=== PATIENT | male | born 1980 | race Caucasian/White ===

== ENCOUNTER 2019-11-13 17:58 | Inpatient (IN) ==
--- OUTSIDE RECORDS SUMMARY | 2019-11-13 17:59 | External Medical Summary | Continuity of Care Document ---
:1980 Author Name Jose Looney, Provider Address Unavailable Unavailable , Care Team Providers Name Role Phone Elodia Del Real [email or web address] Mercedes Ramirez Unavailable Unavailable Assessments Assessed Problems:Dog bite of face, subsequent encounter Problems Dog bite of face, subsequent encounter (V58.89) (S01.85XD) Allergies and Adverse Reactions No Known Drug Allergies (Allergy) Medications No Reported Medications Refills: 0 Procedures Procedures not documented Immunizations Immunizations not documented Family History Unknown Family Member No pertinent family history (V49.89) (Z78.9) Status: Active Comments: Family History Social History - Smoking Status Never smoked tobacco Interventions Discussion/SummarySamuel is reassured that everything looks great. Sutures were removed today. We discussed that it can take up to a year for scar to fully mature and that it may actually look course for looks better. Iwould not entertain any kind of scar revision until 9 months to year following this injury, and I donot think this will be necessary either. He was instructed in scar management and given a separatelyprinted handout discussing use of topical antibiotic ointment, followed by silicone scar gel and sunscreen. Questions were answered. No follow-up visit is necessary unless he has concerns. Plan of Treatment Planned Observations Planned Goals not documented Results No Known Results Results not documented Encounters Appointment; Elodia Del Real M.D. 04-Feb-2016 14:20 Encounter Diagnosis: Problem not documented
[2019-11-13] MEDS ORDERED: SODIUM CHLORIDE 0.9% 1000ML 1,000 ML IV ONE (18:06)
[2019-11-13] MEDS ORDERED: ACETAMINOPHEN 1,000 MG/100 ML VIAL IV STA (18:06)
[2019-11-13] MEDS ORDERED: ONDANSETRON INJ 2 MG/ML 2 ML VIAL IV STA (18:06)
--- NOTE | 2019-11-13 18:23 | XRay Report ---
SINGLE VIEW CHEST CLINICAL HISTORY: Sepsis. FINDINGS: An AP, portable, upright chest radiograph is obtained. No prior studies are available for c omparison at the time of dictation. The cardiomediastinal silhouette is unremarkable. A calcified gr anuloma seen in the left upper lobe. The lungs and pleural spaces are otherwise clear. No pneumothora x is seen. The bony thorax is grossly intact. There is moderate thoracic scoliosis. IMPRESSION: No active disease in the chest. ACT 112: Negative or not required by law. Electronically signed by: Curly Villalobos M.D. 11/13/2019 6:22 PM
--- NOTE | 2019-11-13 18:24 | XRay Report ---
KUB CLINICAL HISTORY: Generalized abdominal pain. FINDINGS: 2 AP, portable, supine abdominal radiographs are obtained. No prior studies are available f or comparison at the time of dictation. There is a nonobstructed abdominal bowel gas pattern. No evid ence of intraperitoneal free air is seen on these supine images. There are no abnormal abdominal calc ifications. The bony structures appear intact. Thoracolumbar scoliosis is noted. IMPRESSION: Nonobstructed abdominal bowel gas pattern. Electronically signed by: Curly Villalobos M.D. 11/13/2019 6:23 PM
[2019-11-13 18:35] LABS: Basophils # (auto) 0.04 K/uL (0-0.2); Basophils % (auto) 0.2 %; Eosinophils # (auto) 0.06 K/uL (0-0.5); Eosinophils % (auto) 0.3 %; Hematocrit (blood only) 44.8 % (42-52); Immature Granulocytes # (auto) 0.21 K/uL (0.00-0.02); Immature Granulocytes % (auto) 1.1 %; Lymphocytes # (auto) 1.68 K/uL (1.2-3.4); Lymphocytes % (auto) 9.2 %; Mean Corpuscular Hemoglobin 29.8 pg (25-34); Mean Corpuscular Hgb Conc 33.5 g/dL (32-36); Mean Corpuscular Volume 89.1 fL (80-100); Mean Platelet Volume 9.6 fL (7.4-10.4); Monocytes # (auto) 1.25 K/uL (0.11-0.59); Monocytes % (auto) 6.8 %; Neutrophils # (auto) 15.09 K/uL (1.4-6.5); Neutrophils % (auto) 82.4 %; Platelet Count 558 K/uL (130-400); RDW Coefficient of Variation 13.1 % (11.5-14.5); RDW Standard Deviation 42.6 fL (36.4-46.3); Red Blood Count 5.03 M/uL (4.7-6.1); White Blood Count 18.33 K/uL (4.8-10.8)
[2019-11-13] MEDS ORDERED: IOVERSOL 100ml IV ONE (18:36)
[2019-11-13 18:42] LABS: iSTAT Creatinine 1.1 mg/dl (0.6-1.3); iSTAT Ionized Calcium 1.1 mmol/l (1.12-1.32); iSTAT Potassium 5.2 mmol/L (3.3-5.0)
[2019-11-13 18:50] LABS: INR 1.2 (0.9-1.1); Partial Thromboplastin Ratio 1.1; Partial Thromboplastin Time 31.6 Seconds (21.0-31.0); Prothrombin Time 12.2 Seconds (9.0-12.0)
[2019-11-13 18:58] LABS: Albumin Globulin Ratio 0.5 (0.9-2); Albumin Level 3.4 gm/dl (3.4-5.0); BUN Creatinine Ratio 9.9 (10-20); Bilirubin,Total 0.8 mg/dl (0.2-1); Calcium 9.4 mg/dl (8.5-10.1); Creatinine Clr Calc Pharmacy 82.8 ml/min; Est GFR (African American) 79.8; Est GFR (Non-African American) 68.9; Globulin 6.2 gm/dl (2.5-4.0); Total Protein 9.6 gm/dl (6.4-8.2)
--- NOTE | 2019-11-13 18:59 | CT Scan Report ---
CT SCAN OF THE ABDOMEN AND PELVIS WITH IV CONTRAST CLINICAL HISTORY: Left lower quadrant abdominal pain. Fever. COMPARISON STUDY: Abdominal radiographs dated 11/13/2019. TECHNIQUE: Following the IV administration of 95 cc of Optiray 320, CT scan of the abdomen and pelvi s is performed from the lung bases to the proximal femora. Images are reviewed in the axial, sagittal , and coronal planes. IV contrast was administered without complication. A dose lowering technique wa s utilized adhering to the principles of ALARA. CT DOSE: 791.34 mGy.cm FINDINGS: Lung bases: The heart is normal in size and without pericardial effusion. The lung bases are clear no ting minimal dependent atelectasis. There is a small hiatal hernia. Liver: The contrast-enhanced liver is normal in size, contour, and attenuation. There is no intrahepa tic biliary ductal dilatation. The hepatic veins and portal veins are patent. Gallbladder: Unremarkable. Spleen: Normal in size and attenuation. Pancreas: Unremarkable. Adrenal glands: Unremarkable. Kidneys: The contrast enhanced kidneys are normal in size and without hydronephrosis. The kidneys enh ance symmetrically. Abdominal vasculature: The abdominal aorta is normal in course and caliber. Bowel: There is mild colonic diverticulosis, greatest involving the left colon. There is phlegmonous change/developing abscess in the left lower quadrant seen on image #287. This measures approximately 5 x 5 x 3.5 cm with surrounding inflammation. There is also mild wall thickening of the history desce nding/proximal sigmoid colon and this is likely related to diverticulitis. No bowel obstruction is se en. The appendix is well-visualized and normal. Peritoneum: There is no intraperitoneal free air or abdominal ascites. There is a small fat-containin g umbilical hernia. Lymphadenopathy: None. Pelvic viscera: The bladder, prostate, and seminal vesicles are normal as visualized. Skeletal structures: There is no upper lumbar scoliosis. Mild spondylotic change is seen in the lower lumbar spine. No lytic or blastic lesions are seen. IMPRESSION: 1. There is phlegmonous change/developing abscess in the left lower quadrant as above with surroundin g inflammation. The likely etiology is diverticulitis. 2. There is mild colonic diverticulosis, greatest involving the left colon. Mild wall thickening is s een involving the distal descending/proximal sigmoid. This likely represents diverticulitis and may b e subacute. 3. No intraperitoneal free air is identified. 4. Additional findings as above. ACT 112: Negative or not required by law. Electronically signed by: Curly Villalobos M.D. 11/13/2019 6:57 PM
[2019-11-13] MEDS ORDERED: cefTRIAXone SODIUM 1,000 MG/50 ML BAG IV STA (19:04)
[2019-11-13] MEDS ORDERED: metroNIDAZOLE 500 MG/100 ML BAG IV STA (19:04)
[2019-11-13 19:26] LABS: Potassium 3.6 mmol/L (3.5-5.1)
[2019-11-13 19:31] LABS: Magnesium 1.9 mg/dl (1.8-2.4)
[2019-11-13] MEDS ORDERED: SODIUM CHLORIDE 0.9% 500 ML IV SCH (20:15)
--- NOTE | 2019-11-13 20:24 | Emergency Department Note ---
History of Present Illness General Chief Complaint: Abdominal Pain Stated Complaint: REF BY JEANNINE GALINDO PAIN Time Seen by Provider: 11/13/19 18:05 History of Present Illness Provider Complaint: abdominal pain Onset (ago): 1 week(s) Pain Consistency: constant Location: LLQ Radiation: RLQ Severity: moderate Maximum Pain Intensity: 5 Current Pain Intensity: 5 Quality: + stabbing and + aching Relieved By: + nothing Exacerbated By: + nothing Context: no foreign travel, no possible food poisoning, no recent antibiotic use, no recent surgery/procedure and no history of similar episodes Associated Symptoms: + nausea, + vomiting and + fever; no diarrhea, no constipation, no dysuria, no hematemesis, no hematochezia, no melena, no hematuria, no headache, no chest pain, no breathing difficulty and no numbness Home Medications Home Medications Medication Instructions Recorded Confirmed Type omeprazole 40 mg PO DAILY 11/13/19 11/13/19 History polyethylene glycol 3350 [Miralax] 17 g PO DAILY PRN 11/13/19 11/13/19 History Allergies Allergy/AdvReac Type Severity Reaction Status Date / Time No Known Allergies Allergy Unverified 11/13/19 20:01 Past Med/Surg History Medical History (Updated 11/13/19 @ 20:24 by Harshal Shelton) No pertinent family history No pertinent past medical history Surgical History (Updated 11/13/19 @ 20:20 by Harshal Shelton) No pertinent past surgical history Social History Smoking Status: Never smoker Feels Safe at Home: Yes Review of Systems A total of 10 systems reviewed and were otherwise negative Physical Exam Vital Signs: Vital Signs - 24 hr 11/13/19 18:02 11/13/19 18:05 11/13/19 19:20 Temperature 38.6 C H Temperature Source Oral Pulse Rate 127 H Pulse Rate [Apical ] 105 H Pulse Rhythm Regular Pulse Rhythm [Apic al] Regular Pulse Strength Normal Respiratory Rate 20 18 Respiratory Effort / Characteristics Non-Labored Sponta neous Respiratory Depth Normal Normal Respiratory Patter n Regular Blood Pressure 153/96 H Blood Pressure [Ri ght Arm] 134/83 Blood Pressure Tea n 115 Blood Pressure Tea n [Right Arm] 100 Blood Pressure Pos ition Sitting Pulse Oximetry 97 99 Oxygen Delivery Me thod Room Air Room Air Room Air Sepsis Recent Feve r Within 48 Hours No Sepsis New/Unexpla ined Change in Men mike Status N/A Sepsis Action Take n by Nursing No Action Required Physical Exam: Physical Exam GENERAL: He is oriented to person, place, and time. He appears well-developed and well-nourished. He does not appear distressed. HENT: Exam performed. - Head: Normocephalic and atraumatic. - Right Ear: External ear normal. No mastoid tenderness. - Left Ear: External ear normal. No mastoid tenderness. - Mouth/Throat: The oropharynx is clear and moist. No trismus in the jaw. No dental abscesses or uvula swelling. No oropharyngeal exudate or tonsillar abscesses. EYES: Conjunctivae and EOM are normal. Pupils are equal, round, and reactive to light. Right eye exhibits no discharge. Left eye exhibits no discharge. No scleral icterus. NECK: Normal range of motion. Neck supple. No JVD present. No spinous process tenderness present. No carotid bruit present. No rigidity. No tracheal deviation and normal range of motion present. No Brudzinski's sign and no Kernig's sign noted. CV: Tachycardic rate, regular rhythm, normal heart sounds and intact distal pulses. There is no peripheral edema. Palpable radial pulses bue. PULM/CHEST: Effort normal and breath sounds normal. No respiratory distress. No stridor. He has no wheezes. He has no rales. - Chest Wall: He exhibits no tenderness. ABD: The abdomen distended and tympanic. There is tenderness to palpation of the left lower quadrant and the right lower quadrant. There is no rebound, no guarding, no Garcia's sign and no tenderness at McBurney's point. Rovsig negative. MUSC/SKEL: Normal range of motion. There is no peripheral edema, tenderness or deformity. LYMPH: No cervical adenopathy. NEURO: He is alert and oriented to person, place, and time. He has normal strength. No cranial nerve deficit or sensory deficit. Coordination and gait normal. GCS eye subscore is 4. GCS verbal subscore is 5. GCS motor subscore is 6. Cerebellar tests wnl. SKIN: Skin is warm and dry. He is not diaphoretic. PSYCH: He has a normal mood and affect. Behavior is normal. Judgment and thought content normal. Course Course 1804: The patient was evaluated in room [facility]. A complete history and physical exam was performed. Patient was immediately seen on arrival in the room. Patient was found to be tachycardic and febrile. Sepsis order protocols were in itiated. Fluid bolus was initiated. There was concerned that the patient might have a perforation given the tenderness in his abdomen, distention, and tympanic nature of his abdomen. Bedside x-rays reviewed by me which showed no free air under the abdomen. Patient will have i-STAT done and if within normal limits we taken a CAT scan immediately. 2005: Labs show leukocytosis of 18. Lactic acid within normal limits. CT of the abdomen shows diverticulitis but no perforation or abscess. Patient will be treated with Rocephin and Flagyl. [facility] [place] [facility]. Joni Serrano Administered Medications Discontinued Medications Acetaminophen (Ofirmev) 1,000 mg in 100 mls @ 400 mls/hr IV NOW STA Stop: 11/13/19 18:20 Last Infusion: 11/13/19 18:58 Dose: 0 mls/hr Documented by: [id number] Admin: 11/13/19 18:25 Dose: 400 mls/hr Documented by: [id number] Sodium Chloride (Nss 1000ml) 1,000 mls @ 999 mls/hr IV .Q1H1M ONE Stop: 11/13/19 19:06 Last Infusion: 11/13/19 19:54 Dose: 0 mls/hr Documented by: [id number] Admin: 11/13/19 18:23 Dose: 999 mls/hr Documented by: [id number] Ceftriaxone Sodium (Rocephin) 1,000 mg in 50 mls @ 100 mls/hr IV NOW STA Stop: 11/13/19 19:33 Last Infusion: 11/13/19 19:47 Dose: 0 mls/hr Documented by: [id number] Admin: 11/13/19 19:17 Dose: 100 mls/hr Documented by: [id number] Metronidazole (Flagyl) 500 mg in 100 mls @ 100 mls/hr IV NOW STA Stop: 11/13/19 20:03 Last Admin: 11/13/19 19:53 Dose: 100 mls/hr Documented by: [id number] Ioversol (Ioversol 100ml) 95 ml IV ONCE ONE Stop: 11/13/19 18:37 Last Admin: 11/13/19 18:37 Dose: 95 ml Documented by: [id number] Ondansetron HCl (Ondansetron Inj 2 Mg/Ml 2 Ml Vial) 4 mg IV NOW STA Stop: 11/13/19 18:07 Last Admin: 11/13/19 18:25 Dose: 4 mg Documented by: [id number] Medical Decision Making Laboratory Data Result diagrams: 11/13/19 18:20 11/13/19 19:06 Lab Results 11/13/19 11/13/19 11/13/19 Range/Units 18:20 18:20 18:20 WBC 18.33 H (4.8-10.8) K/uL RBC 5.03 (4.7-6.1) M/uL Hgb 15.0 (14.0-18.0) g/dL POC Hgb (14.0-18.0) g/dl Hct 44.8 (42-52) % POC Hct (42-52) % MCV 89.1 (80-100) fL MCH 29.8 (25-34) pg MCHC 33.5 (32-36) g/dL RDW Std Deviation 42.6 (36.4-46.3) fL RDW Coeff of Masha 13.1 (11.5-14.5) % Plt Count 558 H (130-400) K/uL MPV 9.6 (7.4-10.4) fL Immature Gran % (Auto) 1.1 % Neut % (Auto) 82.4 % Lymph % (Auto) 9.2 % Mills % (Auto) 6.8 % Eos % (Auto) 0.3 % Baso % (Auto) 0.2 % Neut # (Auto) 15.09 H (1.4-6.5) K/uL Lymph # (Auto) 1.68 (1.2-3.4) K/uL Mills # (Auto) 1.25 H (0.11-0.59) K/uL Eos # (Auto) 0.06 (0-0.5) K/uL Baso # (Auto) 0.04 (0-0.2) K/uL Immature Gran # (Auto) 0.21 H (0.00-0.02) K/uL PT 12.2 H (9.0-12.0) Seconds INR 1.2 H (0.9-1.1) APTT 31.6 H (21.0-31.0) Seconds PTT Ratio 1.1 POC Sodium (135-144) mmol/L Sodium 133 L (136-145) mmol/L POC Potassium (3.3-5.0) mmol/L Potassium (3.5-5.1) mmol/L POC Chloride (101-112) mmol/L Chloride 99 (98-107) mmol/L Carbon Dioxide 25 (21-32) mmol/L POC Total CO2 (24-31) mmol/L Anion Gap 9.0 (3-11) POC Anion Gap (16-25) mmol/L POC BUN (7-18) mg/dl BUN 13 (7-18) mg/dl Creatinine 1.29 (0.6-1.4) mg/dl POC Creatinine (0.6-1.3) mg/dl Est Cr Clr Drug Dosing 82.8 ml/min Est GFR ( Amer) 79.8 Est GFR (Non-Af Amer) 68.9 BUN/Creatinine Ratio 9.9 L (10-20) Glucose 97 (70-99) mg/dl POC Glucose (other) (70-99) mg/dl Lactate (0.4-2.0) mmol/L Calcium 9.4 (8.5-10.1) mg/dl POC Ioniz Calcium Stuart (1.12-1.32) mmol/l Magnesium (1.8-2.4) mg/dl Total Bilirubin 0.8 (0.2-1) mg/dl AST (15-37) U/L ALT 64 (12-78) U/L Alkaline Phosphatase 149 H (45-117) U/L Total Protein 9.6 H (6.4-8.2) gm/dl Albumin 3.4 (3.4-5.0) gm/dl Globulin 6.2 H (2.5-4.0) gm/dl Albumin/Globulin Ratio 0.5 L (0.9-2) 11/13/19 11/13/19 11/13/19 Range/Units 18:20 18:28 19:06 WBC (4.8-10.8) K/uL RBC (4.7-6.1) M/uL Hgb (14.0-18.0) g/dL POC Hgb 16.0 (14.0-18.0) g/dl Hct (42-52) % POC Hct 47 (42-52) % MCV (80-100) fL MCH (25-34) pg MCHC (32-36) g/dL RDW Std Deviation (36.4-46.3) fL RDW Coeff of Masha (11.5-14.5) % Plt Count (130-400) K/uL MPV (7.4-10.4) fL Immature Gran % (Auto) % Neut % (Auto) % Lymph % (Auto) % Mills % (Auto) % Eos % (Auto) % Baso % (Auto) % Neut # (Auto) (1.4-6.5) K/uL Lymph # (Auto) (1.2-3.4) K/uL Mills # (Auto) (0.11-0.59) K/uL Eos # (Auto) (0-0.5) K/uL Baso # (Auto) (0-0.2) K/uL Immature Gran # (Auto) (0.00-0.02) K/uL PT (9.0-12.0) Seconds INR (0.9-1.1) APTT (21.0-31.0) Seconds PTT Ratio POC Sodium 135 (135-144) mmol/L Sodium (136-145) mmol/L POC Potassium 5.2 H (3.3-5.0) mmol/L Potassium 3.6 (3.5-5.1) mmol/L POC Chloride 99 L (101-112) mmol/L Chloride (98-107) mmol/L Carbon Dioxide (21-32) mmol/L POC Total CO2 24 (24-31) mmol/L Anion Gap (3-11) POC Anion Gap 17.0 (16-25) mmol/L POC BUN 17 (7-18) mg/dl BUN (7-18) mg/dl Creatinine (0.6-1.4) mg/dl POC Creatinine 1.1 (0.6-1.3) mg/dl Est Cr Clr Drug Dosing ml/min Est GFR ( Amer) Est GFR (Non-Af Amer) BUN/Creatinine Ratio (10-20) Glucose (70-99) mg/dl POC Glucose (other) 102 H (70-99) mg/dl Lactate 1.6 (0.4-2.0) mmol/L Calcium (8.5-10.1) mg/dl POC Ioniz Calcium Stuart 1.10 L (1.12-1.32) mmol/l Magnesium 1.9 (1.8-2.4) mg/dl Total Bilirubin (0.2-1) mg/dl AST 19 (15-37) U/L ALT (12-78) U/L Alkaline Phosphatase (45-117) U/L Total Protein (6.4-8.2) gm/dl Albumin (3.4-5.0) gm/dl Globulin (2.5-4.0) gm/dl Albumin/Globulin Ratio (0.9-2) Imaging Data Radiologist's Impression: KUB CLINICAL HISTORY: Generalized abdominal pain. FINDINGS: 2 AP, portable, supine abdominal radiographs are obtained. No prior studies are available for comparison at the time of dictation. There is a nonobstructed abdominal bowel gas pattern. No evidence of intraperitoneal free air is seen on these supine images. There are no abnormal abdominal calcifications. The bony structures appear intact. Thoracolumbar scoliosis is noted. IMPRESSION: Nonobstructed abdominal bowel gas pattern. Electronically signed by: Curly Villalobos M.D. 11/13/2019 6:23 PM Dictated: 11/13/191821 Transcribed: 11/13/191821 CT SCAN OF THE ABDOMEN AND PELVIS WITH IV CONTRAST CLINICAL HISTORY: Left lower quadrant abdominal pain. Fever. COMPARISON STUDY: Abdominal radiographs dated 11/13/2019. TECHNIQUE: Following the IV administration of 95 cc of Optiray 320, CT scan of the abdomen and pelvis is performed from the lung bases to the proximal femora. Images are reviewed in the axial, sagittal, and coronal planes. IV contrast was administered without complication. A dose lowering technique was utilized adhering to the principles of ALARA. CT DOSE: 791.34 mGy.cm FINDINGS: Lung bases: The heart is normal in size and without pericardial effusion. The lung bases are clear noting minimal dependent atelectasis. There is a small hiatal hernia. Liver: The contrast-enhanced liver is normal in size, contour, and attenuation. There is no intrahepatic biliary ductal dilatation. The hepatic veins and portal veins are patent. Gallbladder: Unremarkable. Spleen: Normal in size and attenuation. Pancreas: Unremarkable. Adrenal glands: Unremarkable. Kidneys: The contrast enhanced kidneys are normal in size and without hydronephrosis. The kidneys enhance symmetrically. Abdominal vasculature: The abdominal aorta is normal in course and caliber. Bowel: There is mild colonic diverticulosis, greatest involving the left colon. There is phlegmonous change/developing abscess in the left lower quadrant seen on image #287. This measures approximately 5 x 5 x 3.5 cm with surrounding inflammation. There is also mild wall thickening of the history descending/proximal sigmoid colon and this is likely related to diverticulitis. No bowel obstruction is seen. The appendix is well-visualized and normal. Peritoneum: There is no intraperitoneal free air or abdominal ascites. There is a small fat-containing umbilical hernia. Lymphadenopathy: None. Pelvic viscera: The bladder, prostate, and seminal vesicles are normal as visualized. Skeletal structures: There is no upper lumbar scoliosis. Mild spondylotic change is seen in the lower lumbar spine. No lytic or blastic lesions are seen. IMPRESSION: 1. There is phlegmonous change/developing abscess in the left lower quadrant as above with surrounding inflammation. The likely etiology is diverticulitis. 2. There is mild colonic diverticulosis, greatest involving the left colon. Mild wall thickening is seen involving the distal descending/proximal sigmoid. This likely represents diverticulitis and may be subacute. 3. No intraperitoneal free air is identified. 4. Additional findings as above. ACT 112: Negative or not required by law. Electronically signed by: Curly Villalobos M.D. 11/13/2019 6:57 PM Dictated: 11/13/191846 Transcribed: 11/13/191846 SINGLE VIEW CHEST CLINICAL HISTORY: Sepsis. FINDINGS: An AP, portable, upright chest radiograph is obtained. No prior studies are available for comparison at the time of dictation. The cardiomediastinal silhouette is unremarkable. A calcified granuloma seen in the left upper lobe. The lungs and pleural spaces are otherwise clear. No pneumothorax is seen. The bony thorax is grossly intact. There is moderate t horacic scoliosis. IMPRESSION: No active disease in the chest. ACT 112: Negative or not required by law. Electronically signed by: Curly Villalobos M.D. 11/13/2019 6:22 PM Dictated: 11/13/191820 Transcribed: 11/13/191820 ECG Data Indication: abdominal pain Rate (beats per minute): 110 Rhythm: sinus tachycardia Findings: no ST depression and no ST elevation Additional Comments: ID QRS and QTc intervals within normal limits. [facility] Narrative 1805: The patient was evaluated in room B12. A complete history and physical ex am was performed. Patient was immediately seen on arrival in the room. Patient was found to be tachycardic and febrile. Sepsis order protocols were initiated. Fluid bolus was initiated. There was concerned that the patient might have a perforation given the tenderness in his abdomen, distention, and tympanic nature of his abdomen. Bedside x-rays reviewed by me which showed no free air under the abdomen. Patient will have i-STAT done and if within normal limits we taken a CAT scan immediately. 2004: Labs show leukocytosis of 18. Lactic acid within normal limits. CT of the abdomen shows diverticulitis but no perforation or abscess. Patient will be treated with Rocephin and Flagyl. Patient will be admitted to the [place] [facility] team Dr. Joni Serrano Impression & Plan Diverticulitis Discharge Plan Visit Data Chief Complaint: Abdominal Pain Stated Complaint: REF BY , ABD PAIN ED Provider: Harshal Shelton Discharge Problem: Diverticulitis Patient Disposition: Admitted As Inpatient Forms Stand Alone Forms: My [facility] Prescriptions Prescriptions: No Action polyethylene glycol 3350 [Miralax] 17 gram Powder In Packet 17 g PO DAILY PRN (Reason: Constipation) RF: 0 omeprazole 40 mg Capsule,Delayed Release(Dr/Ec) 40 mg PO DAILY RF: 0 Referrals Referrals: Mercedes Ramirez PA-C [Primary Care Provider] -
[2019-11-13 21:04] LABS: Appearance Urine Clear (Clear); Bacteria Urine Automated Negative (Negative); Bilirubin Urine Negative (Negative); Blood Urine 1+ (Negative); Cast Urine Automated 0 /lpf (0-5); Color Urine Yellow; Epithelial Cell Urine Auto 0-5 /lpf (0-5); Glucose Urine UA Negative (Negative); Ketones Urine 1+ (Negative); Leukocyte Esterase Urine Negative (Negative); Nitrite Urine Negative (Negative); Protein Urine Negative (Negative); RBC Urine Automated 0-4 /hpf (0-4); Specific Gravity Urine 1.044 (1.000-1.030); Urobilinogen Urine Negative (Negative)
[2019-11-13] MEDS ORDERED: NITROGLYCERIN SL 0.4 MG/TAB TAB SL PRN (21:13)
[2019-11-13] MEDS ORDERED: HYDROmorphone INJ 0.5 MG/0.5 ML SYR IV PRN (21:13)
[2019-11-13] MEDS ORDERED: PIPERACILL/TAZOBAC CONSULT ACTIVE PRN (21:13)
[2019-11-13] MEDS ORDERED: ONDANSETRON INJ 2 MG/ML 2 ML VIAL IV PRN (21:13)
[2019-11-13] MEDS ORDERED: PIPERACILLIN/TAZOBACTAM 4.5 GM in DEXTROSE 5% 100 ML IV ONE (21:30)
[2019-11-13] MEDS: SODIUM CHLORIDE 0.9% 1000ML 1,000 ML IV SCH (22:14)
--- NOTE | 2019-11-13 22:28 | History and Physical Report ---
DATE OF ADMISSION: 11/13/2019 CHIEF COMPLAINT: Abdominal pain. HISTORY OF PRESENT ILLNESS: This 39-year-old male with past medical history significant for GERD, who presents with ongoing abdominal pain since last 1 week, mostly in the left lower quadrant and today he felt chills and fevers and nausea, no vomiting, somewhat constipated. Denies any blood in the stools. Normal bladder movements. Denies any chest pain or shortness of breath. Has some headache. No blurred vision, no earache, no runny nose, no sore throat. Appetite is okay. No dysphagia, no cough. Currently resting comfortably. When he came in, he was having temp spike and tachycardia, white count is 18. Lactate is 1.6. CT abdomen and pelvis is showing acute diverticulitis in the descending, proximal sigmoid region and with developing abscess. ALLERGIES: No known drug allergies. PAST MEDICAL HISTORY: As mentioned above. PAST SURGICAL HISTORY: Colonoscopy, EGDs. MEDICATIONS: Omeprazole 40 mg p.o. daily, MiraLax 17 g p.o. daily p.r.n. FAMILY HISTORY: Significant for mother had blood disorder, hypertension, depression, obesity, cirrhosis. Father has diverticulosis. Maternal grandmother had cancer. SOCIAL HISTORY: Single. No smoking, alcohol occasionally. No drug use. REVIEW OF SYMPTOMS: As per HPI. Rest of review of symptoms negative. PHYSICAL EXAMINATION: GENERAL: The patient is of moderate build, not in acute distress. VITAL SIGNS: Temperature 38.6, pulse 105, blood pressure 134/83, respiratory rate 18, oxygen 99% room air. HEENT: No pallor, no icterus. Pupils equal, round, reactive to light. Oral mucosa moist. NECK: No JVD, no neck masses. CARDIOVASCULAR: S1, S2 heard. Tachycardia. No murmurs, no gallop. RESPIRATORY SYSTEM: Normal AP diameter. No accessory muscle use. No wheezing, no crackles. ABDOMEN: Soft, bowel sounds present. Mild left lower quadrant tenderness present, no guarding, no rigidity, no distention. CENTRAL NERVOUS SYSTEM: Cranial nerves II-XII grossly intact. Nonfocal. EXTREMITIES: No edema, no erythema. LABORATORY DATA: WBC 18, hemoglobin 15, hematocrit 44.8, platelets 558. PT 12.2, INR 1.2, APTT 31.6. Sodium 133, potassium 3.6, chloride 99, bicarbonate 25, BUN 13, creatinine 1.2, serum glucose 97. Lactate 1.6, calcium 9.4, magnesium 1.9, total bilirubin 0.8, AST 19, ALT 64, alkaline phosphatase 149. KUB x-ray, nonobstructive abdominal bowel gas pattern. Chest x-ray, no acute disease in the chest. CT of abdomen and pelvis, phlegmonous change developing abscess in the left lower quadrant with the surrounding inflammation. This likely etiology is diverticulitis. There is mild colonic diverticulosis greatest involving the left colon. Mild wall thickening is seen involving the distal descending proximal sigmoid. This likely represents diverticulitis. No intraperitoneal free air is identified. EKG: Sinus tachycardia, rate of 110, no significant change was found. ASSESSMENT AND PLAN: This 39-year-old male who presents with acute diverticulitis. 1. Acute diverticulitis with developing abscess. The patient will be admitted for sepsis with temperature spike, tachycardia, elevated white count and diverticulitis. Received Rocephin and Flagyl in the ER and fluids. We will give another [address] him on IV normal saline at 125 mL per hour, IV Zosyn, IV Flagyl, n.p.o., IV morphine, IV Dilaudid p.r.n., IV Zofran p.r.n. and consult surgery and monitor in the med/tele. 2. Gastroesophageal reflux disease, we will place on IV Protonix. 3. Deep venous thrombosis prophylaxis, sequential compression devices. DISPOSITION: Closely monitor in med/tele. Level 1 full code. Expect discharge home and follow with family doctor. MANDO
[2019-11-14] MEDS: PIPERACILLIN/TAZOBACTAM 3.375 GM in DEXTROSE 5% 100 ML IV SCH ×3 (02:51→18:10)
[2019-11-14] MEDS: metroNIDAZOLE 500 MG/100 ML BAG IV SCH ×3 (02:51→20:59)
[2019-11-14 05:55] LABS: Basophils # (auto) 0.06 K/uL (0-0.2); Basophils % (auto) 0.3 %; Eosinophils # (auto) 0.06 K/uL (0-0.5); Eosinophils % (auto) 0.3 %; Hematocrit (blood only) 39.5 % (42-52); Hemoglobin 13.3 g/dL (14.0-18.0); Immature Granulocytes # (auto) 0.17 K/uL (0.00-0.02); Lymphocytes # (auto) 1.45 K/uL (1.2-3.4); Lymphocytes % (auto) 8.2 %; Mean Corpuscular Hgb Conc 33.7 g/dL (32-36); Mean Platelet Volume 9.4 fL (7.4-10.4); Monocytes # (auto) 1.11 K/uL (0.11-0.59); Monocytes % (auto) 6.3 %; Neutrophils # (auto) 14.84 K/uL (1.4-6.5); Neutrophils % (auto) 83.9 %; Platelet Count 464 K/uL (130-400); RDW Coefficient of Variation 12.9 % (11.5-14.5); RDW Standard Deviation 42.3 fL (36.4-46.3); Red Blood Count 4.44 M/uL (4.7-6.1); White Blood Count 17.69 K/uL (4.8-10.8)
[2019-11-14] MEDS: SODIUM CHLORIDE 0.9% 1000ML 1,000 ML IV SCH ×4 (06:17→23:36)
[2019-11-14 06:37] LABS: Calcium 8.9 mg/dl (8.5-10.1); Creatinine Clr Calc Pharmacy 92.5 ml/min; Est GFR (African American) 91.7; Est GFR (Non-African American) 79.2; Magnesium 2.2 mg/dl (1.8-2.4); Potassium 3.7 mmol/L (3.5-5.1)
--- NOTE | 2019-11-14 09:38 | Surgery Consultation ---
Date of Consultation November 14, 2019 Assessment & Plan (1) Diverticulitis: This is a 39y M with PMH of GERD who presents to the [facility] ED on 11/13/19 with complaints of abdominal pain over the past week. Workup with a CT a/p showed a phlegmonous change/developing abscess in the left lower quadrant with surrounding inflammation, likely from diverticulitis. Today patient's WBC 17.6. Discussed with radiology the possibility of percutaneous drainage, however at this time it does not appear the abscess is fully developed nor is there a good wall to get into it. At this time recommend management with IV abx (currently on IV zosyn/flagyl) and keeping patient NPO with IVF until improvement in WBC, fever, and symptoms. He may have ice chips. Patient will likely require colonoscopy as outpatient once recovers. No indication for surgical intervention at this time. We will continue to follow. Pt seen and examined with Dr. Hammer. Supervising Physician Co-Signing Physician Notes Patient seen and examined, labs and imaging reviewed, agree with above. 39-year-old male presented with 1 week of abdominal pain and left lower quadrant along with fevers. Admitted with diverticulitis with developing abscess. He has been treated with antibiotics and is feeling slightly better. On exam he is currently afebrile with stable vitals. His abdomen is mildly tender to palpation the left lower quadrant. White blood cell count still elevated to 17 but slightly down from yesterday. CT scan reviewed with radiology and interpreted by myself as well. There is some mild inflammation of the sigmoid colon and diverticula which is consistent with diverticulitis. There is a developing 5 x 3 cm phlegmon versus early abscess without a well-defined wall. Assessment: Diverticulitis with developing abscess. We discussed with radiology and they do not feel this is amenable to drainage at this time. We will therefore plan with IV antibiotics and possible repeat CT scan in a few days. No surgical intervention at this time Continue IV antibiotics Patient should remain n.p.o. until afebrile and white blood cell count downtrending Repeat CT scan with oral and IV contrast in a few days to assess for resolution versus worsening of abscess Patient will need an outpatient colonoscopy History of Present Illness Attending Physician: Marek Braxton MD History of Present Illness This is a 39y M with PMH of GERD who presents to the [facility] ED on 11/13/19 with complaints of abdominal pain. Patient reports he has been dealing with pain across his lower abdomen for the past week. It has progressed to worsening pain mostly around the left lower quadrant and he came to the hospital for further ev aluation. In the ER patient was noted to have an elevated WBC of 18, fever, and a CT a/p that revealed findings concerning for diverticulitis with phlegmonous change and developing abscess in the LLQ. He endorses + fevers and chills at home. He reports history of a colonoscopy in the past that was unremarkable. He denies any abdominal surgeries in the past or any episodes of pain similar to this. Allergies Allergy/AdvReac Type Severity Reaction Status Date / Time No Known Allergies Allergy Unverified 11/13/19 20:01 Home Medications Home Medications Medication Instructions Recorded Confirmed Type omeprazole 40 mg PO DAILY 11/13/19 11/13/19 History polyethylene glycol 3350 [Miralax] 17 g PO DAILY PRN 11/13/19 11/13/19 History Patient History Medical History No pertinent family history No pertinent past medical history Surgical History No pertinent past surgical history Social History Smoking Status: Never smoker Hx Alcohol Use: No Hx Substance Use: No Communication Ability: Effective Beliefs That Will Affect Care: None Current Living Situation: Significant Other Feels Safe at Home: Yes Safety Concerns: Feels Safe At This Time Assistive Devices: None Review of Systems Constitutional: + fever and + chills Respiratory: no dyspnea Cardiovascular: no chest pain Gastrointestinal: + abdominal pain (across lower abdomen, more pronounced in L lower abd. ) Physical Exam Physical Exam: awake/alert Respiratory: normal respiratory effort Gastrointestinal (Abdomen): Inspection/Auscultation: abdomen not distended Percussion/Palpation: + abdomen tender (mild tenderness to deep palpation in LLQ) and abdomen soft Results & Data ([facility]) Vital Signs (Past 12 Hours) Vital Signs Temp Pulse Pulse Resp BP BP Pulse Ox 11/14/19 07:47 36.8 C 94 H 20 135/77 94 11/14/19 07:08 96 H 11/14/19 03:51 37.1 C 91 H 18 123/78 94 11/13/19 23:37 37.1 C 92 H 18 123/[address] SCAN OF THE ABDOMEN AND PELVIS WITH IV CONTRAST CLINICAL HISTORY: Left lower quadrant abdominal pain. Fever. COMPARISON STUDY: Abdominal radiographs dated 11/13/2019. TECHNIQUE: Following the IV administration of 95 cc of Optiray 320, CT scan of the abdomen and pelvis is performed from the lung bases to the proximal femora. Images are reviewed in the axial, sagittal, and coronal planes. IV contrast was administered without complication. A dose lowering technique was utilized adhering to the principles of ALARA. CT DOSE: 791.34 mGy.cm FINDINGS: Lung bases: The heart is normal in size and without pericardial effusion. The lung bases are clear noting minimal dependent atelectasis. There is a small hiatal hernia. Liver: The contrast-enhanced liver is normal in size, contour, and attenuation. There is no intrahepatic biliary ductal dilatation. The hepatic veins and portal veins are patent. Gallbladder: Unremarkable. Spleen: Normal in size and attenuation. Pancreas: Unremarkable. Adrenal glands: Unremarkable. Kidneys: The contrast enhanced kidneys are normal in size and without hydronephrosis. The kidneys enhance symmetrically. Abdominal vasculature: The abdominal aorta is normal in course and caliber. Bowel: There is mild colonic diverticulosis, greatest involving the left colon. There is phlegmonous change/developing abscess in the left lower quadrant seen on image #287. This measures approximately 5 x 5 x 3.5 cm with surrounding inflammation. There is also mild wall thickening of the history descending/proximal sigmoid colon and this is likely related to diverticulitis. No bowel obstruction is seen. The appendix is well-visualized and normal. Peritoneum: There is no intraperitoneal free air or abdominal ascites. There is a small fat-containing umbilical hernia. Lymphadenopathy: None. Pelvic viscera: The bladder, prostate, and seminal vesicles are normal as visualized. Skeletal structures: There is no upper lumbar scoliosis. Mild spondylotic change is seen in the lower lumbar spine. No lytic or blastic lesions are seen. IMPRESSION: 1. There is phlegmonous change/developing abscess in the left lower quadrant as above with surrounding inflammation. The likely etiology is diverticulitis. 2. There is mild colonic diverticulosis, greatest involving the left colon. Mild wall thickening is seen involving the distal descending/proximal sigmoid. This likely represents diverticulitis and may be subacute. 3. No intraperitoneal free air is identified. 4. Additional findings as above. ACT 112: Negative or not required by law. Electronically signed by: Curly Villalobos M.D. 11/13/2019 6:57 PM PG Care Time/CCT Total # of Minutes Spent Total Time Spent with Patient: Total time spent is greater than 50% in coordination of care (as documented) at patient's floor/unit and/or counseling patient: Coding Level of Care Code 89495 Inpt Consult Level 3 Diagnoses Diverticulitis K57.92
--- NOTE | 2019-11-14 11:46 | Electrocardiogram Report ---
Test Reason : Blood Pressure : / mmHG Vent. Rate : 110 BPM Atrial Rate : 110 BPM P-R Int : 166 ms QRS Dur : 096 ms QT Int : 332 ms P-R-T Axes : 022 002 028 degrees QTc Int : 449 ms Sinus tachycardia Incomplete right bundle branch block Borderline ECG No previous ECGs available Confirmed by Alex Zavala ([id number]) on 11/14/2019 11:45:41 AM Referred By: REFERRED SELF Confirmed By:Walter Zavala
[2019-11-14] MEDS: PANTOprazole 40 MG in SYRINGE 0 ML IV SCH (12:12)
[2019-11-14] MEDS: ACETAMINOPHEN 325 MG TAB PO PRN ×2 (15:36→20:58)
--- NOTE | 2019-11-14 19:00 | Hospitalist Progress Note ---
Date of Service November 14, 2019 Assessment & Plan (1) Diverticulitis: Present on admission with worsening abdominal pain WBC on admission 18K, slightly dropped to 17K CT abd/pelvis showed phlegmonous change/developing abscess in the left lower quadrant as above with surrounding inflammation. Mild wall thickening is seen involving the distal descending/proximal sigmoid. Surgery on board Recommended conservative management with IV abx and fluid Keep NPO for now until WBC normalizes Continue pain management Will need outpatient colonoscopy in 6 to 8 weeks Continue monitor CBC GERD Continue PPI [place] [facility] [place]mission and Anticipated Discharge Date Admission Date: November 13, 2019 Subjective Pt was seen and examined Lying in bed with no distress Pt said that his abdominal pain improves denies any nausea, vomiting, fever and diarrhea Physical Exam Physical Exam: General- No acute distress Head- atraumatic Eyes- PERRL, EOMI, ENT- oropharynx clear Neck- supple, no JVD Lungs- clear to auscultation Heart- regular rhythm; no murmur Abdomen- normal bowel sounds, soft, nontender Extremities- no calf tenderness Neuro- alert, oriented x 3; PERRL, EOMI; no facial palsy; no dysarthria Skin- warm & dry Results & Data Results & Data ([facility]) Vital Signs (Past 12 Hours) Vital Signs Temp Pulse Pulse Resp BP BP Pulse Ox 11/14/19 15:58 38.3 C H 93 H 20 147/83 H 93 11/14/19 11:47 37.1 C 103 H 20 134/85 94 11/14/19 07:47 36.8 C 94 H 20 135/77 94 11/14/19 07:08 96 H
[2019-11-15] MEDS: PIPERACILLIN/TAZOBACTAM 3.375 GM in DEXTROSE 5% 100 ML IV SCH ×3 (02:00→17:29)
[2019-11-15] MEDS: metroNIDAZOLE 500 MG/100 ML BAG IV SCH ×2 (04:13→11:08)
[2019-11-15] MEDS: SODIUM CHLORIDE 0.9% 1000ML 1,000 ML IV SCH ×4 (05:16→23:54)
[2019-11-15 06:30] LABS: Hematocrit (blood only) 40.1 % (42-52); Hemoglobin 12.8 g/dL (14.0-18.0); Mean Corpuscular Hemoglobin 28.4 pg (25-34); Mean Corpuscular Hgb Conc 31.9 g/dL (32-36); Mean Corpuscular Volume 89.1 fL (80-100); Mean Platelet Volume 9.4 fL (7.4-10.4); Platelet Count 494 K/uL (130-400); RDW Coefficient of Variation 12.8 % (11.5-14.5); RDW Standard Deviation 41.9 fL (36.4-46.3); White Blood Count 14.66 K/uL (4.8-10.8)
[2019-11-15 07:11] LABS: BUN Creatinine Ratio 7.6 (10-20); Calcium 8.6 mg/dl (8.5-10.1); Est GFR (Non-African American) 94.9; Potassium 3.7 mmol/L (3.5-5.1)
[2019-11-15] MEDS: oxyCODONE HCL IR 5 MG TAB (IMMEDIATE RELEASE) PO PRN ×2 (08:18→17:28)
--- NOTE | 2019-11-15 10:26 | Surgery Progress Note ---
Date of Service November 15, 2019 Assessment & Plan (1) Diverticulitis: WBC down to 14.6 from 17 Did have a low grade temp yesterday evening 38.3C, afebrile this morning Abdominal pain about the same as yesterday & he is not having much bowel functino For now continue IV abx and NPO with ice chips/ sips Will consider repeat CT scan in the next couple days Admission and Anticipated Discharge Date Admission Date: November 13, 2019 Supervising Physician Co-Signing Physician Notes Patient seen and examined, labs reviewed, agree with above. 39-year-old admitted with diverticulitis with developing abscess not amenable to drainage at this time. He has been on IV antibiotics and n.p.o. He was febrile yesterday. He has been afebrile since early this morning. He states his pain is feeling better after having a recent bowel movement. On exam he is currently afebrile with mild tachycardia, otherwise vital stable. Abdomen is soft, tender p alpation left lower quadrant but slightly improved, no guarding or rebound. White blood cell count down to 14 from 18. Plan to continue with nonoperative management, IV antibiotics. We will start him on clear liquids as he continues to improve. May need repeat CT scan in the next few days to determine resolution versus maturation versus worsening of the abscess. Subjective Patient states he is feeling about the same as yesterday, no worse. He has had some twinges of abdominal pain this morning that he required some narcotic for with relief. He denies any nausea/vomiting. He is not passing much flatus or any BMs. Physical Exam Physical Exam: awake/alert Gastrointestinal (Abdomen): Percussion/Palpation: + abdomen tender (some ttp mid/left lower quadrants) and abdomen soft Results & Data ([facility]) Vital Signs (Past 12 Hours) Vital Signs Temp Pulse Pulse Resp BP Pulse Ox 11/15/19 07:12 36.6 C 97 H 18 135/88 95 11/15/19 04:20 37.1 C 99 H 18 132/84 95 11/15/19 00:19 36.6 C 94 H 18 125/87 94 11/14/19 23:30 96 H PG Care Time/CCT Total # of Minutes Spent Total Time Spent with Patient: Total time spent is greater than 50% in coordination of care (as documented) at patient's floor/unit and/or counseling patient: Coding Level of Care Code 13839 Subseq Hosp Care Lvl 1 Diagnoses Diverticulitis K57.92
[2019-11-15] MEDS: PANTOprazole 40 MG in SYRINGE 0 ML IV SCH (11:08)
[2019-11-15] MEDS ORDERED: Nursing to Pharmacy Communication SCH (16:00)
--- NOTE | 2019-11-15 18:53 | Hospitalist Progress Note ---
Date of Service November 15, 2019 Assessment & Plan (1) Diverticulitis: Sepsis Met sepsis criteria with febrile, tachycardia and leukocytosis Present on admission with worsening abdominal pain WBC on admission 18K, slightly dropped to 17K CT abd/pelvis showed phlegmonous change/developing abscess in the left lower quadrant as above with surrounding inflammation. Mild wall thickening is seen involving the distal descending/proximal sigmoid. Surgery on board Recommended conservative management with IV abx and fluid Keep NPO for now until WBC normalizes Continue pain management Will need outpatient colonoscopy in 6 to 8 weeks Continue monitor CBC GERD Continue PPI DVT px on SCDs Disposition Will discharge once medically stable Admission and Anticipated Discharge Date Admission Date: November 13, 2019 Subjective Pt was seen and examined Lying in bed with no distress Pt said that pain is slightly improved denies any chest pain, palpitation and SOB Physical Exam Physical Exam: General- No acute distress Head- atraumatic Eyes- PERRL, EOMI, ENT- oropharynx clear Neck- supple, no JVD Lungs- clear to auscultation Heart- regular rhythm; no murmur Abdomen- normal bowel sounds, soft, +mild tender with palpation Extremities- no calf tenderness Neuro- alert, oriented x 3; PERRL, EOMI; no facial palsy; no dysarthria Skin- warm & dry Results & Data Results & Data ([facility]) Vital Signs (Past 12 Hours) Vital Signs Temp Pulse Resp BP Pulse Ox 11/15/19 14:49 36.7 C 103 H 19 162/89 H 94 11/15/19 11:01 37.2 C 100 H 21 146/90 H 96 11/15/19 07:12 36.6 C 97 H 18 135/88 95
[2019-11-15] MEDS: ACETAMINOPHEN 325 MG TAB PO PRN (21:57)
[2019-11-16] MEDS: oxyCODONE HCL IR 5 MG TAB (IMMEDIATE RELEASE) PO PRN ×2 (01:40→21:23)
[2019-11-16] MEDS: PIPERACILLIN/TAZOBACTAM 3.375 GM in DEXTROSE 5% 100 ML IV SCH ×3 (01:41→17:07)
[2019-11-16] MEDS: SODIUM CHLORIDE 0.9% 1000ML 1,000 ML IV SCH ×2 (07:49→15:45)
--- NOTE | 2019-11-16 08:35 | Surgery Progress Note ---
Date of Service November 16, 2019 Assessment & Plan (1) Diverticulitis: some improvement can have clears CBC pending likely repeat CT in a few days Admission and Anticipated Discharge Date Admission Date: November 13, 2019 Supervising Physician Co-Signing Physician Notes Patient seen and examined, labs reviewed, agree with above. Diverticulitis with developing phlegmon versus abscess. Being treated with IV antibiotics. Overall feeling better, tolerating clear liquids. He has had a few bowel movements and his pain is significantly improved. He has been afebrile for greater than 24 hours, mildly tachycardic but otherwise vital signs stable. Abdominal exam is improved with less tenderness in the left lower quadrant. White blood cell count stable at 14,000. Continue clear liquids, may slowly advance as tolerated. Continue IV antibiotics, would recommend until white blood cell count normalizes and symptoms improved. He will need a course of at least 10 to 14 days of total antibiotics which be completed with orals as an outpatient. May repeat CT imaging if failure to improve or clinically worsens. Subjective feeling better, increasing flatus and having loose BMs Physical Exam Gastrointestinal (Abdomen): Inspection/Auscultation: + abdomen distended (mild) Percussion/Palpation: + abdomen tender (Mild LLQ) and abdomen soft Results & Data ([facility]) Vital Signs (Past 12 Hours) Vital Signs Temp Pulse Pulse Resp BP BP Pulse Ox 11/16/19 08:08 37.5 C 101 H 18 143/92 H 95 11/16/19 01:35 36.8 C 88 16 146/84 H 96 11/15/19 23:00 36.8 C 96 H 18 127/85 95 PG Care Time/CCT Total # of Minutes Spent Total Time Spent with Patient: Total time spent is greater than 50% in coordination of care (as documented) at patient's floor/unit and/or counseling patient: Coding Level of Care Code 03642 Subseq Hosp Care Lvl 1 Diagnoses Diverticulitis K57.92
[2019-11-16 08:43] LABS: Albumin Level 2.5 gm/dl (3.4-5.0); BUN Creatinine Ratio 7.6 (10-20); Creatinine Clr Calc Pharmacy 113.9 ml/min; Est GFR (African American) 118.6; Est GFR (Non-African American) 102.3
[2019-11-16 08:46] LABS: Basophils # (auto) 0.04 K/uL (0-0.2); Basophils % (auto) 0.3 %; Eosinophils # (auto) 0.11 K/uL (0-0.5); Eosinophils % (auto) 0.7 %; Hemoglobin 13.8 g/dL (14.0-18.0); Immature Granulocytes # (auto) 0.27 K/uL (0.00-0.02); Immature Granulocytes % (auto) 1.8 %; Lymphocytes # (auto) 0.97 K/uL (1.2-3.4); Lymphocytes % (auto) 6.5 %; Mean Corpuscular Hemoglobin 29.4 pg (25-34); Mean Corpuscular Hgb Conc 32.9 g/dL (32-36); Mean Corpuscular Volume 89.4 fL (80-100); Mean Platelet Volume 9.4 fL (7.4-10.4); Monocytes # (auto) 0.96 K/uL (0.11-0.59); Monocytes % (auto) 6.5 %; Neutrophils # (auto) 12.46 K/uL (1.4-6.5); Neutrophils % (auto) 84.2 %; Platelet Count 466 K/uL (130-400); RDW Coefficient of Variation 12.9 % (11.5-14.5); RDW Standard Deviation 42.5 fL (36.4-46.3); White Blood Count 14.81 K/uL (4.8-10.8)
[2019-11-16 08:46] LABS: Albumin Globulin Ratio 0.5 (0.9-2); Bilirubin,Total 0.6 mg/dl (0.2-1); Globulin 5.5 gm/dl (2.5-4.0)
[2019-11-16] MEDS: PANTOprazole 40 MG in SYRINGE 0 ML IV SCH (10:45)
[2019-11-16] MEDS: ACETAMINOPHEN 325 MG TAB PO PRN (16:36)
--- NOTE | 2019-11-16 20:20 | Hospitalist Progress Note ---
Date of Service November 16, 2019 Assessment & Plan (1) Diverticulitis: Sepsis Met sepsis criteria with febrile, tachycardia and leukocytosis Present on admission with worsening abdominal pain WBC on admission 18K, slightly dropped to 17K CT abd/pelvis showed phlegmonous change/developing abscess in the left lower quadrant as above with surrounding inflammation. Mild wall thickening is seen involving the distal descending/proximal sigmoid. Surgery on board Recommended conservative management with IV abx and fluid Continue pain management Starting on clear liquid diet Will need outpatient colonoscopy in 6 to 8 weeks Continue monitor CBC GERD Continue PPI DVT px on SCDs Disposition Pt would like to be discharge tomorrow Admission and Anticipated Discharge Date Admission Date: November 13, 2019 Subjective Pt was seen and examined Lying in bed with no distress Pt said that his abdominal pain improves significantly He tolerated clear liquid diet Denies any chest pain, palpitation and SOB Physical Exam Physical Exam: General- No acute distress Head- atraumatic Eyes- PERRL, EOMI, ENT- oropharynx clear Neck- supple, no JVD Lungs- clear to auscultation Heart- regular rhythm; no murmur Abdomen- normal bowel sounds, soft, +mild tender with palpation Extremities- no calf tenderness Neuro- alert, oriented x 3; PERRL, EOMI; no facial palsy; no dysarthria Skin- warm & dry Results & Data Results & Data ([facility]) Vital Signs (Past 12 Hours) Vital Signs Temp Pulse Pulse Resp BP Pulse Ox 11/16/19 16:28 37.0 C 104 H 18 136/87 97 11/16/19 10:50 108 H 138/90
[2019-11-17] MEDS: SODIUM CHLORIDE 0.9% 1000ML 1,000 ML IV SCH ×3 (00:27→17:15)
[2019-11-17] MEDS: PIPERACILLIN/TAZOBACTAM 3.375 GM in DEXTROSE 5% 100 ML IV SCH ×3 (02:08→17:15)
[2019-11-17] MEDS: oxyCODONE HCL IR 5 MG TAB (IMMEDIATE RELEASE) PO PRN (06:16)
[2019-11-17 08:07] LABS: Basophils # (auto) 0.03 K/uL (0-0.2); Basophils % (auto) 0.2 %; Eosinophils # (auto) 0.15 K/uL (0-0.5); Eosinophils % (auto) 1.1 %; Hematocrit (blood only) 43.5 % (42-52); Hemoglobin 14.2 g/dL (14.0-18.0); Immature Granulocytes # (auto) 0.29 K/uL (0.00-0.02); Immature Granulocytes % (auto) 2.1 %; Lymphocytes # (auto) 1.16 K/uL (1.2-3.4); Lymphocytes % (auto) 8.5 %; Mean Corpuscular Hemoglobin 28.9 pg (25-34); Mean Corpuscular Hgb Conc 32.6 g/dL (32-36); Mean Corpuscular Volume 88.4 fL (80-100); Monocytes # (auto) 0.72 K/uL (0.11-0.59); Monocytes % (auto) 5.3 %; Neutrophils # (auto) 11.32 K/uL (1.4-6.5); Neutrophils % (auto) 82.8 %; Platelet Count 483 K/uL (130-400); RDW Coefficient of Variation 12.9 % (11.5-14.5); RDW Standard Deviation 41.6 fL (36.4-46.3); Red Blood Count 4.92 M/uL (4.7-6.1); White Blood Count 13.67 K/uL (4.8-10.8)
--- NOTE | 2019-11-17 10:57 | Surgery Progress Note ---
Date of Service November 17, 2019 Assessment & Plan (1) Diverticulitis: Clinically continues to improve Pain decreasing Tolerating clear liquid diet and will advance to full liquid diet Continue IV antibiotics for now Encourage ambulation Admission and Anticipated Discharge Date Admission Date: November 13, 2019 Subjective Has less pain today Denies nausea and vomiting Tolerating clear liquid diet Physical Exam Gastrointestinal (Abdomen): Inspection/Auscultation: abdomen not distended Percussion/Palpation: + abdomen tender (Mild tenderness to deep palpation in the lower left side) and abdomen soft Results & Data ([facility]) Vital Signs (Past 12 Hours) Vital Signs Temp Pulse Resp BP Pulse Ox 11/17/19 08:04 37.0 C 98 H 18 144/88 H 97 11/17/19 00:06 37.4 C 92 H 16 130/84 94 Laboratory Results 11/17/19 Range/Units 07:48 WBC 13.67 H (4.8-10.8) K/uL RBC 4.92 (4.7-6.1) M/uL Hgb 14.2 (14.0-18.0) g/dL Hct 43.5 (42-52) % MCV 88.4 (80-100) fL MCH 28.9 (25-34) pg MCHC 32.6 (32-36) g/dL RDW Std Deviation 41.6 (36.4-46.3) fL RDW Coeff of Masha 12.9 (11.5-14.5) % Plt Count 483 H (130-400) K/uL MPV 9.0 (7.4-10.4) fL Immature Gran % (Auto) 2.1 % Neut % (Auto) 82.8 % Lymph % (Auto) 8.5 % Gentry % (Auto) 5.3 % Eos % (Auto) 1.1 % Baso % (Auto) 0.2 % Neut # (Auto) 11.32 H (1.4-6.5) K/uL Lymph # (Auto) 1.16 L (1.2-3.4) K/uL Gentry # (Auto) 0.72 H (0.11-0.59) K/uL Eos # (Auto) 0.15 (0-0.5) K/uL Baso # (Auto) 0.03 (0-0.2) K/uL Immature Gran # (Auto) 0.29 H (0.00-0.02) K/uL
[2019-11-17] MEDS: PANTOprazole 40 MG in SYRINGE 0 ML IV SCH (11:29)
[2019-11-17] MEDS: ACETAMINOPHEN 325 MG TAB PO PRN (17:11)
--- NOTE | 2019-11-17 18:52 | Hospitalist Progress Note ---
Date of Service November 17, 2019 Assessment & Plan (1) Diverticulitis: Sepsis Met sepsis criteria with febrile, tachycardia and leukocytosis Present on admission with worsening abdominal pain WBC on admission 18K, then dropped to 13K CT abd/pelvis showed phlegmonous change/developing abscess in the left lower quadrant as above with surrounding inflammation. Mild wall thickening is seen involving the distal descending/proximal sigmoid. Surgery on board Recommended conservative management with IV abx and fluid Continue pain management Diet advanced as tolerated Will need outpatient colonoscopy in 6 to 8 weeks Continue monitor CBC GERD Continue PPI DVT px on SCDs Disposition Will discharge home once medically stable Admission and Anticipated Discharge Date Admission Date: November 13, 2019 Subjective Pt was seen and examined Lying in bed with no distress Pt said that he feels a little better Pt said that he tolerated his diet Denies any chest pain, palpitation, dizziness and SOB Physical Exam Physical Exam: General- No acute distress Head- atraumatic Eyes- PERRL, EOMI, ENT- oropharynx clear Neck- supple, no JVD Lungs- clear to auscultation Heart- regular rhythm; no murmur Abdomen- normal bowel sounds, soft, +mild tender with palpation Extremities- no calf tenderness Neuro- alert, oriented x 3; PERRL, EOMI; no facial palsy; no dysarthria Skin- warm & dry Results & Data Results & Data ([facility]) Vital Signs (Past 12 Hours) Vital Signs Temp Pulse Resp BP Pulse Ox 11/17/19 15:54 36.8 C 102 H 18 134/89 94 11/17/19 08:04 37.0 C 98 H 18 144/88 H 97
[2019-11-18] MEDS: SODIUM CHLORIDE 0.9% 1000ML 1,000 ML IV SCH ×2 (01:05→08:53)
[2019-11-18] MEDS: PIPERACILLIN/TAZOBACTAM 3.375 GM in DEXTROSE 5% 100 ML IV SCH ×2 (01:11→08:54)
[2019-11-18] MEDS: oxyCODONE HCL IR 5 MG TAB (IMMEDIATE RELEASE) PO PRN (04:24)
[2019-11-18 06:14] LABS: Basophils # (auto) 0.03 K/uL (0-0.2); Basophils % (auto) 0.2 %; Eosinophils # (auto) 0.14 K/uL (0-0.5); Eosinophils % (auto) 1.1 %; Hematocrit (blood only) 41.6 % (42-52); Hemoglobin 13.9 g/dL (14.0-18.0); Immature Granulocytes # (auto) 0.32 K/uL (0.00-0.02); Immature Granulocytes % (auto) 2.5 %; Lymphocytes # (auto) 1.25 K/uL (1.2-3.4); Lymphocytes % (auto) 9.8 %; Mean Corpuscular Hemoglobin 29.8 pg (25-34); Mean Corpuscular Hgb Conc 33.4 g/dL (32-36); Mean Corpuscular Volume 89.3 fL (80-100); Mean Platelet Volume 9.2 fL (7.4-10.4); Monocytes # (auto) 0.81 K/uL (0.11-0.59); Monocytes % (auto) 6.4 %; Neutrophils # (auto) 10.17 K/uL (1.4-6.5); Platelet Count 486 K/uL (130-400); RDW Coefficient of Variation 13.1 % (11.5-14.5); RDW Standard Deviation 42.7 fL (36.4-46.3); Red Blood Count 4.66 M/uL (4.7-6.1); White Blood Count 12.72 K/uL (4.8-10.8)
[2019-11-18 06:40] LABS: BUN Creatinine Ratio 7.3 (10-20); Calcium 8.8 mg/dl (8.5-10.1); Creatinine Clr Calc Pharmacy 127.6 ml/min; Est GFR (African American) 127.6; Est GFR (Non-African American) 110.1; Potassium 3.8 mmol/L (3.5-5.1)
--- NOTE | 2019-11-18 10:08 | Surgery Progress Note ---
Date of Service November 18, 2019 Assessment & Plan (1) Diverticulitis: Overall improving with less pain, improved clinical exam. Would advance diet to low fiber - OK to discharge from surgical standpoint if he tolerates. Would continue oral antibiotics after discharge to complete 7-10 day course. Admission and Anticipated Discharge Date Admission Date: November 13, 2019 Subjective Feels better. Tolerated full liquids. States he "is going home today no matter what". Pain is improved. Review of Systems Review of Systems: All systems reviewed & are unremarkable except as noted in HPI & below Physical Exam Constitutional: WD/WN, vitals as above Respiratory: normal respiratory effort, lungs clear to auscultation Cardiovascular: RRR, no murmur, no edema Gastrointestinal (Abdomen): Inspection/Auscultation: normal bowel sounds; abdomen not distended Percussion/Palpation: abdomen soft; abdomen nontender and no guarding Neurologic: moves all extremities; no focal motor deficits Psychiatric: A+Ox3, euthymic affect Results & Data ([facility]) Vital Signs (Past 12 Hours) Vital Signs Temp Pulse Resp BP Pulse Ox 11/18/19 08:10 36.6 C 91 H 18 130/87 96 11/17/19 23:18 36.7 C 101 H 16 150/96 H 96 Laboratory Results Abnormal lab results 11/18/19 11/18/19 Range/Units 05:43 05:43 WBC 12.72 H (4.8-10.8) K/uL RBC 4.66 L (4.7-6.1) M/uL Hgb 13.9 L (14.0-18.0) g/dL Hct 41.6 L (42-52) % Plt Count 486 H (130-400) K/uL Neut # (Auto) 10.17 H (1.4-6.5) K/uL [place] # (Auto) 0.81 H (0.11-0.59) K/uL Immature Gran # (Auto) 0.32 H (0.00-0.02) K/uL BUN 6 L (7-18) mg/dl BUN/Creatinine Ratio 7.3 L (10-20)
[2019-11-18] MEDS: PANTOprazole 40 MG in SYRINGE 0 ML IV SCH (10:36)
--- NOTE | 2019-11-18 14:36 | Hospitalist Progress Note ---
Date of Service November 18, 2019 Assessment & Plan (1) Diverticulitis: Sepsis Met sepsis criteria with febrile, tachycardia and leukocytosis Present on admission with worsening abdominal pain WBC on admission 18K, then dropped to 13K CT abd/pelvis showed phlegmonous change/developing abscess in the left lower quadrant as above with surrounding inflammation. Mild wall thickening is seen involving the distal descending/proximal sigmoid. Surgery on board Recommended conservative management with IV abx with Zosyn and IV fluid Continue pain management Diet advanced to low fiber diet and tolerated Will need outpatient colonoscopy in 6 to 8 weeks Will transition to PO cipro and flagyl to complete a total of 10 days course antibiotic Ok from Surgery standpoint to discharge home GERD Continue PPI DVT px on SCDs Disposition Will discharge home today Admission and Anticipated Discharge Date Admission Date: November 13, 2019 Subjective Pt was seen and examined Lying in bed with no distress Pt said that he feel fine He said that he tolerated his diet He said that he has been walking in the hallway Denies any chest pain, palpitation, dizziness and SOB Physical Exam Physical Exam: General- No acute distress Head- atraumatic Eyes- PERRL, EOMI, ENT- oropharynx clear Neck- supple, no JVD Lungs- clear to auscultation Heart- regular rhythm; no murmur Abdomen- normal bowel sounds, soft, Non tender Extremities- no calf tenderness Neuro- alert, oriented x 3; PERRL, EOMI; no facial palsy; no dysarthria Skin- warm & dry Results & Data Results & Data ([facility]) Vital Signs (Past 12 Hours) Vital Signs Temp Pulse Resp BP Pulse Ox 11/18/19 08:10 36.6 C 91 H 18 130/87 96
[2019-11-18] MEDS ORDERED: metroNIDAZOLE 500 MG TAB PO STA (15:11)
[2019-11-18] MEDS ORDERED: CIPROFLOXACIN 500 MG TAB PO STA (15:11)
--- NOTE | 2019-11-20 11:21 | Discharge Summary ---
Date of Service November 18, 2019 Admission HPI Per Admitting Provider CHIEF COMPLAINT: Abdominal pain. HISTORY OF PRESENT ILLNESS: This 39-year-old male with past medical history significant for GERD, who presents with ongoing abdominal pain since last 1 week, mostly in the left lower quadrant and today he felt chills and fevers and nausea, no vomiting, somewhat constipated. Denies any blood in the stools. Normal bladder movements. Denies any chest pain or shortness of breath. Has some headache. No blurred vision, no earache, no runny nose, no sore throat. Appetite is okay. No dysphagia, no cough. Currently resting comfortably. When he came in, he was having temp spike and tachycardia, white count is 18. Lactate is 1.6. CT abdomen and pelvis is showing acute diverticulitis in the descending, proximal sigmoid region and with developing abscess. Admission Exam Per Admitting Provider GENERAL: The patient is of moderate build, not in acute distress. VITAL SIGNS: Temperature 38.6, pulse 105, blood pressure 134/83, respiratory rate 18, oxygen 99% room air. HEENT: No pallor, no icterus. Pupils equal, round, reactive to light. Oral mucosa moist. NECK: No JVD, no neck masses. CARDIOVASCULAR: S1, S2 heard. Tachycardia. No murmurs, no gallop. RESPIRATORY SYSTEM: Normal AP diameter. No accessory muscle use. No wheezing, no crackles. ABDOMEN: Soft, bowel sounds present. Mild left lower quadrant tenderness present, no guarding, no rigidity, no distention. CENTRAL NERVOUS SYSTEM: Cranial nerves II-XII grossly intact. Nonfocal. EXTREMITIES: No edema, no erythema. Principal Diagnosis Diverticulitis: Sepsis GERD Discharge Exam General- No acute distress Head- atraumatic Eyes- PERRL, EOMI, ENT- oropharynx clear Neck- supple, no JVD Lungs- clear to auscultation Heart- regular rhythm; no murmur Abdomen- normal bowel sounds, soft, Non tender Extremities- no calf tenderness Neuro- alert, oriented x 3; PERRL, EOMI; no facial palsy; no dysarthria Skin- warm & dry Discharge Data Allergies Allergy/AdvReac Type Severity Reaction Status Date / Time No Known Allergies Allergy Unverified 11/13/19 20:01 Consultations 11/13/19 19:04 ED Decision to Admit Stat 11/13/19 21:13 Consult Case Management - Discharge Planning Routine 11/14/19 07:00 Consult General Surgery Routine Ordered Studies 11/13/19 18:06 CT abd pelvis IV con only Stat KUB CLINICAL HISTORY: Generalized abdominal pain. FINDINGS: 2 AP, portable, supine abdominal radiographs are obtained. No prior studies are available for comparison at the time of dictation. There is a nonobstructed abdominal bowel gas pattern. No evidence of intraperitoneal free air is seen on these supine images. There are no abnormal abdominal calcifications. The bony structures appear intact. Thoracolumbar scoliosis is noted. IMPRESSION: Nonobstructed abdominal bowel gas pattern. Electronically signed by: Curly Villalobos M.D. 11/13/2019 6:23 PM Dictated: 11/13/191821 Transcribed: 11/13/191821 CT SCAN OF THE ABDOMEN AND PELVIS WITH IV CONTRAST CLINICAL HISTORY: Left lower quadrant abdominal pain. Fever. COMPARISON STUDY: Abdominal radiographs dated 11/13/2019. TECHNIQUE: Following the IV administration of 95 cc of Optiray 320, CT scan of the abdomen and pelvis is performed from the lung bases to the proximal femora. Images are reviewed in the axial, sagittal, and coronal planes. IV contrast was administered without complication. A dose lowering technique was utilized adhering to the principles of ALARA. CT DOSE: 791.34 mGy.cm FINDINGS: Lung bases: The heart is normal in size and without pericardial effusion. The lung bases are clear noting minimal dependent atelectasis. There is a small hiatal hernia. Liver: The contrast-enhanced liver is normal in size, contour, and attenuation. There is no intrahepatic biliary ductal dilatation. The hepatic veins and portal veins are patent. Gallbladder: Unremarkable. Spleen: Normal in size and attenuation. Pancreas: Unremarkable. Adrenal glands: Unremarkable. Kidneys: The contrast enhanced kidneys are normal in size and without hydronephrosis. The kidneys enhance symmetrically. Abdominal vasculature: The abdominal aorta is normal in course and caliber. Bowel: There is mild colonic diverticulosis, greatest involving the left colon. There is phlegmonous change/developing abscess in the left lower quadrant seen on image #287. This measures approximately 5 x 5 x 3.5 cm with surrounding inflammation. There is also mild wall thickening of the history descending/proximal sigmoid colon and this is likely related to diverticulitis. No bowel obstruction is seen. The appendix is well-visualized and normal. Peritoneum: There is no intraperitoneal free air or abdominal ascites. There is a small fat-containing umbilical hernia. Lymphadenopathy: None. Pelvic viscera: The bladder, prostate, and seminal vesicles are normal as visualized. Skeletal structures: There is no upper lumbar scoliosis. Mild spondylotic change is seen in the lower lumbar spine. No lytic or blastic lesions are seen. IMPRESSION: 1. There is phlegmonous change/developing abscess in the left lower quadrant as above with surrounding inflammation. The likely etiology is diverticulitis. 2. There is mild colonic diverticulosis, greatest involving the left colon. Mild wall thickening is seen involving the distal descending/proximal sigmoid. This likely represents diverticulitis and may be subacute. 3. No intraperitoneal free air is identified. 4. Additional findings as above. ACT 112: Negative or not required by law. Electronically signed by: Curly Villalobos M.D. 11/13/2019 6:57 PM Dictated: 11/13/191846 Transcribed: 11/13/191846 SINGLE VIEW CHEST CLINICAL HISTORY: Sepsis. FINDINGS: An AP, portable, upright chest radiograph is obtained. No prior studies are available for comparison at the time of dictation. The card iomediastinal silhouette is unremarkable. A calcified granuloma seen in the left upper lobe. The lungs and pleural spaces are otherwise clear. No pneumothorax is seen. The bony thorax is grossly intact. There is moderate thoracic scoliosis. IMPRESSION: No active disease in the chest. ACT 112: Negative or not required by law. Electronically signed by: Curly Villalobos M.D. 11/13/2019 6:22 PM Dictated: 11/13/191820 Transcribed: 11/13/191820 Hospital Course (1) Diverticulitis: Sepsis Met sepsis criteria with febrile, tachycardia and leukocytosis Present on admission with worsening abdominal pain WBC on admission 18K, then dropped to 13K CT abd/pelvis showed phlegmonous change/developing abscess in the left lower quadrant as above with surrounding inflammation. Mild wall thickening is seen involving the distal descending/proximal sigmoid. Surgery on board Recommended conservative management with IV abx with Zosyn and IV fluid Continue pain management Diet advanced to low fiber diet and tolerated Will need outpatient colonoscopy in 6 to 8 weeks Will transition to PO cipro and flagyl to complete a total of 10 days course antibiotic Ok from Surgery standpoint to discharge home GERD Continue PPI DVT px on SCDs Disposition Will discharge home today Total Time Total Time Spent Total Time Spent (In Minutes): 35 minutes Total Time Includes: Examination of the Patient, Discharge Planning, Medication Reconciliation, Communication With Other Providers and Other Discharge Plan Discharge Items Patient Disposition: Home - Self-Care Reason For Visit: ABDOMINAL PAIN Discharge Diagnosis: Diverticulitis: Sepsis GERD Activity: Resume your previous activity Non-emergency contact: Primary Care Provider and Surgeon Call non-emergency contact if: you have any medication questions and your temperature is above 101 Follow-up/Referrals: Mercedes Ramirez PA-C [Primary Care Provider] - (Date & Time 11/22/2019 11:20 AM Provider Juwan Erickson MD Department [facility] ) Diet: Low Fiber Addtl Attending Provider Instructions: Follow up with your primary care provider within 1 week Complete the course of the antibiotic with cipro and flagyl You will need to get arrange for a colonoscopy in 6 to 8 week Continue low fiber diet Pending Studies at Discharge: No Stand-Alone Forms: [facility] [employer], Smoking Cessation Medications and DC Order Prescriptions: New ciprofloxacin HCl [Cipro] 500 mg tablet 500 mg PO BID 5 Days Qty: 10 RF: 0 metronidazole [Flagyl] 500 mg tablet 500 mg PO TID 5 Days Qty: 15 RF: 0 Continued polyethylene glycol 3350 [Miralax] 17 gram Powder In Packet 17 g PO DAILY PRN (Reason: Constipation) RF: 0 omeprazole 40 mg Capsule,Delayed Release(Dr/Ec) 40 mg PO DAILY RF: 0 Discharge Orders: Discharge Order (Routine); Ordered 11/18/19 Ordered By: Marek Chopra/Other Patient Handouts: Low-Fiber Diet, Diverticulosis Diverticulitis Admission Data Admit Date/Time: 11/13/19 20:05 Attending Provider: Marek Braxton Admit Provider: Colby Thomas Primary Care Provider: Mercedes Ramirez Other Providers: Sonam Bryan ; Colby Thomas ; Milo Parrish ; Sola Segal ; Patti Ashton ; Benji Shukla ; Arnie Rascon ; Cynthia James ; Jet Villanueva ; Crarie Sims ; Harrison Michele Jr ; Olivia Headley ; Geeta Parker Other Interventions: Discharge Summary Assessment (RN) Last Done: 11/18/19 15:08
== END 2019-11-18 15:48 | disposition home or self-care (01) | DRG 872 ==
LOC: ED 17:58 → SUATTDRO 20:05 → 2N 20:05 → 3N 11-16 01:33